=== PATIENT | male | born 1975 | race Caucasian/White ===

== ENCOUNTER 2020-11-24 18:53 | Inpatient (IN) ==
[2020-11-24] MEDS ORDERED: Naloxone 0.4 MG/ML INJ IVP PRN (22:41)
[2020-11-24] MEDS ORDERED: Ondansetron ODT 4 MG TAB.RAPDIS SL PRN (22:41)
[2020-11-24 23:28] LABS: Albumin 3.9 g/dL (3.5-5.7); Albumin/Globulin Ratio 1.7 (1.1-2.2); Bilirubin,Total 0.4 mg/dL (0.3-1.0); Calcium 8.4 mg/dL (8.6-10.3); Globulin 2.3 g/dL (2.4-3.5); Potassium 5.2 mEq/L (3.5-5.1); Total Protein 6.2 g/dL (6.4-8.9)
[2020-11-24] MEDS ORDERED: 0.9 % Sodium Chloride 1,000 ML IVC ONE (23:31)
[2020-11-25 00:24] LABS: Bacteria,Urine Few per hpf (None-Few); Bilirubin,Urine Negative (Negative); Blood,Urine Trace (Negative); Clarity,Urine Clear (Clear); Color,Urine Light-Yellow (Yellow); Glucose,Urine (UA) Normal (Normal); Hyaline Casts,Urine Many per lpf (None Seen); Ketones,Urine Negative (Negative); Leukocyte Esterase,Urine Negative (Negative); Mucus,Urine Few per lpf (None-Few); Nitrite,Urine Negative (Negative); PH,Urine 5.5 pH Units (5.0-8.0); Protein,Urine 50 mg/dL (Neg-Trace); RBC,Urine 0-3 per hpf (0-3); Urobilinogen,Urine Normal (Normal); WBC,Urine 0-3 per hpf (0-3)
[2020-11-25 01:41] LABS: Amphetamine Screen,Urine Negative ng/mL (Cutoff=1000); Barbiturate Screen,Urine Negative ng/mL (Cutoff=200); Benzodiazepines Screen,Urine Negative ng/mL (Cutoff=200); Cannabinoid Screen,Urine Positive ng/mL (Cutoff = 50); Cocaine Screen,Urine Negative ng/mL (Cutoff= 300); Opiate Screen,Urine Negative ng/mL (Cutoff=300); Phencyclidine Screen,Urine Negative ng/mL (Cutoff=25)
[2020-11-25 03:51] LABS: Basophils # 0.1 K/mcL (0.0-0.2); Basophils % 0.4 %; Eosinophils # 0.4 K/mcL (0.0-0.6); Eosinophils % 3.5 %; Hematocrit 34.5 % (37.5-50.1); Hemoglobin 11.1 g/dL (12.9-16.9); Immature Granulocytes % 0.3 % (0-4); Lymphocytes # 3.1 K/mcL (0.6-4.6); Lymphocytes % 26.8 %; Mean Corpuscular HGB Conc 32.2 g/dL (31.6-35.5); Mean Corpuscular Hemoglobin 27.2 pg (28.0-33.3); Mean Corpuscular Volume 84.6 fL (83.0-100.0); Mean Platelet Volume 9.4 fL (9.4-12.4); Monocytes # 1.5 K/mcL (0.0-1.3); Monocytes % 12.8 %; Neutrophils # 6.5 K/mcL (1.6-8.9); Platelet Count 234 K/mcL (140-400); Red Blood Count 4.08 M/mcL (4.19-5.50); Red Cell Distribution Width 15.2 % (11.5-14.5); Segmented Neutrophils % 56.2 %; White Blood Count 11.6 K/mcL (4.3-11.1)
[2020-11-25 04:06] LABS: Albumin 3.7 g/dL (3.5-5.7); Albumin/Globulin Ratio 1.6 (1.1-2.2); Bilirubin,Total 0.4 mg/dL (0.3-1.0); Calcium 8.6 mg/dL (8.6-10.3); Globulin 2.3 g/dL (2.4-3.5)
[2020-11-25 04:07] LABS: Prothrombin Time 11.7 Seconds (9.4-12.1)
[2020-11-25] MEDS ORDERED: 0.9 % Sodium Chloride 1,000 ML IVC ONE (04:29)
[2020-11-25] MEDS: *HR* Heparin 5,000 UNIT/ML VIAL SQ SCH ×3 (04:54→20:21)
[2020-11-25] MEDS: Nicotine 14 MG PATCH.TD24 TD PRN (05:07)
[2020-11-25] MEDS ORDERED: Chloraseptic Spray 177 ML BOTTLE MM PRN (06:12)
[2020-11-25] MEDS: 0.9 % Sodium Chloride 1,000 ML IVC SCH ×2 (08:12→17:27)
[2020-11-25] MEDS: *HR* Buprenorphine HCl 2 MG SUBLINGUAL TABLET SL SCH (08:44)
[2020-11-25] MEDS ORDERED: Ipratropium/Albuterol Neb 3 ML IH PRN (08:49)
[2020-11-25] MEDS ORDERED: SUBOXONE SL SCH (09:00)
[2020-11-25 09:31] LABS: Protein/Creatinine Ratio,Urine 0.46 mg/mg (0.00-0.20)
[2020-11-25] MEDS: *HR* LORazepam 2 MG/ML VIAL IVP PRN ×2 (09:57→17:27)
[2020-11-25] MEDS ORDERED: 0.9 % Sodium Chloride 1,000 ML IVC SCH (17:45)
[2020-11-26] MEDS: Melatonin 3 MG TABLET PO PRN ×2 (00:23→21:15)
[2020-11-26 02:30] LABS: Basophils # 0.1 K/mcL (0.0-0.2); Basophils % 0.4 %; Eosinophils # 0.3 K/mcL (0.0-0.6); Eosinophils % 2.5 %; Hematocrit 35.3 % (37.5-50.1); Hemoglobin 11.3 g/dL (12.9-16.9); Immature Granulocytes % 0.3 % (0-4); Lymphocytes % 16.9 %; Mean Corpuscular Hemoglobin 26.9 pg (28.0-33.3); Mean Platelet Volume 9.4 fL (9.4-12.4); Monocytes # 1.1 K/mcL (0.0-1.3); Monocytes % 9.4 %; Neutrophils # 8.2 K/mcL (1.6-8.9); Platelet Count 247 K/mcL (140-400); Red Cell Distribution Width 14.7 % (11.5-14.5); Segmented Neutrophils % 70.5 %; White Blood Count 11.6 K/mcL (4.3-11.1)
[2020-11-26 02:52] LABS: Potassium 4.8 mEq/L (3.5-5.1); Uric Acid 13.2 mg/dL (2.3-7.6)
[2020-11-26 03:22] LABS: Hepatitis B Surface Antigen Nonreactive (Nonreactive)
[2020-11-26 03:50] LABS: Hepatitis B Core IgM Nonreactive (Nonreactive)
[2020-11-26 03:51] LABS: Hepatitis A Antibody IgM Nonreactive (Nonreactive); Hepatitis C Virus Antibody Nonreactive (Nonreactive)
[2020-11-26] MEDS: Nicotine 14 MG PATCH.TD24 TD PRN (05:12)
[2020-11-26] MEDS: *HR* Heparin 5,000 UNIT/ML VIAL SQ SCH ×3 (05:12→21:15)
[2020-11-26] MEDS: *HR* Buprenorphine HCl 2 MG SUBLINGUAL TABLET SL SCH (07:18)
[2020-11-26] MEDS: *HR* LORazepam 2 MG/ML VIAL IVP PRN (08:40)
[2020-11-26] MEDS: Budesonide/Formoterol 160/4.5 1 PUFF INH IH SCH (20:18)
[2020-11-27 02:02] LABS: Basophils # 0.1 K/mcL (0.0-0.2); Basophils % 0.6 %; Eosinophils # 0.3 K/mcL (0.0-0.6); Eosinophils % 4.4 %; Hematocrit 35.6 % (37.5-50.1); Hemoglobin 11.5 g/dL (12.9-16.9); Immature Granulocytes % 0.3 % (0-4); Lymphocytes # 2.5 K/mcL (0.6-4.6); Lymphocytes % 32.6 %; Mean Corpuscular HGB Conc 32.3 g/dL (31.6-35.5); Mean Corpuscular Hemoglobin 26.7 pg (28.0-33.3); Mean Corpuscular Volume 82.8 fL (83.0-100.0); Mean Platelet Volume 9.1 fL (9.4-12.4); Monocytes # 0.8 K/mcL (0.0-1.3); Monocytes % 10.3 %; Platelet Count 228 K/mcL (140-400); Red Cell Distribution Width 14.3 % (11.5-14.5); Segmented Neutrophils % 51.8 %; White Blood Count 7.7 K/mcL (4.3-11.1)
[2020-11-27 02:24] LABS: Calcium 9.4 mg/dL (8.6-10.3); Potassium 4.7 mEq/L (3.5-5.1)
[2020-11-27] MEDS: *HR* Heparin 5,000 UNIT/ML VIAL SQ SCH (06:06)
[2020-11-27 07:13] VITALS: BP 122/63
[2020-11-27] MEDS: *HR* Buprenorphine HCl 2 MG SUBLINGUAL TABLET SL SCH (08:08)
[2020-11-27] MEDS: Budesonide/Formoterol 160/4.5 1 PUFF INH IH SCH (08:18)
== END 2020-11-27 10:45 | disposition home or self-care (01) | DRG 247 ==
LOC: 2NNU → SUATTDRO 11-25 17:40 → 2NNU 11-26 15:30
PROVIDERS: ADMIT Internal Medicine; ATTEND Internal Medicine

== ENCOUNTER 2021-03-26 18:21 | Observation (INO) ==
[2021-03-26] MEDS ORDERED: Nitroglycerin 0.4 MG TAB.SUBL SL PRN (19:01)
[2021-03-26] MEDS ORDERED: Ketorolac 15 MG/ML VIAL IVP ONE (19:02)
[2021-03-26 19:59] LABS: Basophils # 0.1 K/mcL (0.0-0.2); Basophils % 0.4 %; Eosinophils # 0.5 K/mcL (0.0-0.6); Eosinophils % 2.8 %; Hemoglobin 8.3 g/dL (12.9-16.9); Immature Granulocytes % 0.6 % (0-4); Lymphocytes # 2.4 K/mcL (0.6-4.6); Lymphocytes % 14.6 %; Mean Corpuscular HGB Conc 33.2 g/dL (31.6-35.5); Mean Corpuscular Hemoglobin 29.1 pg (28.0-33.3); Mean Corpuscular Volume 87.7 fL (83.0-100.0); Mean Platelet Volume 9.8 fL (9.4-12.4); Monocytes # 1.8 K/mcL (0.0-1.3); Monocytes % 11.1 %; Neutrophils # 11.5 K/mcL (1.6-8.9); Platelet Count 201 K/mcL (140-400); Red Blood Count 2.85 M/mcL (4.19-5.50); Red Cell Distribution Width 14.1 % (11.5-14.5); Segmented Neutrophils % 70.5 %; White Blood Count 16.3 K/mcL (4.3-11.1)
[2021-03-26 20:22] LABS: Alanine Aminotransferase 10 Units/L (7-52); Albumin 3.7 g/dL (3.5-5.7); Albumin/Globulin Ratio 1.8 (1.1-2.2); Alkaline Phosphatase 88 Units/L (34-104); Aspartate Amino Transferase 14 Units/L (13-39); BUN/Creatinine Ratio 13 (6-26); Bilirubin,Direct 0.1 mg/dL (0.0-0.2); Bilirubin,Indirect 0.1 mg/dL (0.0-1.0); Bilirubin,Total 0.2 mg/dL (0.3-1.0); Blood Urea Nitrogen 17 mg/dL (6-20); Carbon Dioxide 30 mEq/L (23-29); Chloride 104 mEq/L (98-107); Globulin 2.1 g/dL (2.4-3.5); Glucose 110 mg/dL (70-105); Osmolality,Calculated 290 (280-300); Sodium 139 mEq/L (136-145); Total Protein 5.8 g/dL (6.4-8.9); Troponin I < 0.03 ng/mL (< 0.04); eGFR For African Americans > 60 (> 60); eGFR For Non-African Americans 59 (> 60)
[2021-03-26] MEDS ORDERED: cefTRIAXone 1,000 MG in Water for inj. (sterile) 10 ML IVP ONE (20:31)
[2021-03-26] MEDS ORDERED: Azithromycin 250 MG TABLET PO ONE (20:31)
[2021-03-26] MEDS ORDERED: Isovue-370 500 ML BOTTLE IVP ONE (20:40)
[2021-03-26] MEDS ORDERED: Naloxone 0.4 MG/ML INJ IVP PRN (22:30)
[2021-03-26] MEDS ORDERED: Melatonin 3 MG TABLET PO PRN (22:30)
[2021-03-26] MEDS ORDERED: *HR* HYDROcodone/Acet 5/325 mg TABLET PO PRN (22:30)
[2021-03-26] MEDS ORDERED: Ondansetron 4 MG/2 ML VIAL IVP PRN (22:30)
[2021-03-26] MEDS ORDERED: Ipratropium/Albuterol Neb 3 ML IH PRN (22:57)
[2021-03-27] MEDS: Ipratropium/Albuterol Neb 3 ML IH SCH ×4 (00:04→11:10)
[2021-03-27 01:02] LABS: Basophils # 0.1 K/mcL (0.0-0.2); Basophils % 0.4 %; Eosinophils # 0.5 K/mcL (0.0-0.6); Eosinophils % 3.4 %; Hematocrit 25.3 % (37.5-50.1); Hemoglobin 8.1 g/dL (12.9-16.9); Immature Granulocytes % 0.8 % (0-4); Lymphocytes # 2.6 K/mcL (0.6-4.6); Lymphocytes % 19.3 %; Mean Corpuscular Hemoglobin 28.8 pg (28.0-33.3); Mean Platelet Volume 9.6 fL (9.4-12.4); Monocytes # 1.4 K/mcL (0.0-1.3); Monocytes % 9.9 %; Platelet Count 191 K/mcL (140-400); Red Blood Count 2.81 M/mcL (4.19-5.50); Red Cell Distribution Width 14.4 % (11.5-14.5); Segmented Neutrophils % 66.2 %; White Blood Count 13.6 K/mcL (4.3-11.1)
[2021-03-27 01:09] LABS: Prothrombin Time 11.8 Seconds (9.4-12.1)
[2021-03-27] MEDS: *HR* Buprenorphine HCl 8 MG TAB.SUBL SL SCH ×2 (01:18→21:23)
[2021-03-27 01:20] LABS: BUN/Creatinine Ratio 12 (6-26); Blood Urea Nitrogen 17 mg/dL (6-20); Calcium 8.9 mg/dL (8.6-10.3); Carbon Dioxide 28 mEq/L (23-29); Chloride 104 mEq/L (98-107); Chol/HDL Ratio 3.5 (0-4.9); Cholesterol 102 mg/dL (< 200); Glucose 142 mg/dL (70-105); HDL Cholesterol 29 mg/dL (40-59); LDL Cholesterol,Calculated 32 mg/dL (< 100); Magnesium 1.9 mg/dL (1.6-2.6); Osmolality,Calculated 290 (280-300); Potassium 4.1 mEq/L (3.5-5.1); Sodium 138 mEq/L (136-145); Triglycerides 204 mg/dL (< 150); eGFR For African Americans > 60 (> 60); eGFR For Non-African Americans 53 (> 60)
[2021-03-27 01:24] LABS: Iron 24 mcg/dL (65-175)
[2021-03-27 01:40] LABS: Ferritin 46 ng/mL (20-250)
[2021-03-27 01:46] LABS: Folate 7.9 ng/mL (3.0-16.0)
[2021-03-27 02:22] LABS: % Iron Saturation 8 % (20-55); Transferrin 228 mg/dL (203-362)
[2021-03-27] MEDS: *HR* Enoxaparin 40 MG/0.4 ML SYRINGE SQ SCH (05:47)
[2021-03-27] MEDS: Budesonide/Formoterol 160/4.5 1 PUFF INH IH SCH ×2 (07:34→19:49)
[2021-03-27] MEDS: cefTRIAXone 1,000 MG in Water for inj. (sterile) 10 ML IVP SCH (10:31)
[2021-03-27] MEDS: predniSONE 20 MG TABLET PO SCH (10:31)
[2021-03-27] MEDS ORDERED: Fluticasone Propionate Nasal 50 MCG/SPRAY BOTTLE NS PRN (12:54)
[2021-03-27] MEDS: cloNIDine HCL 0.1 MG TABLET PO SCH ×2 (14:31→21:23)
[2021-03-27] MEDS: Gabapentin 300 MG CAPSULE PO SCH ×2 (14:31→21:24)
[2021-03-27] MEDS: hydrOXYzine pamoate 25 MG CAPSULE PO SCH ×2 (14:34→21:23)
[2021-03-27] MEDS ORDERED: Azithromycin 500 MG in 0.9 % Sodium Chloride 250 ML IVPB SCH (18:00)
[2021-03-27] MEDS: Nicotine 21 MG PATCH.TD24 TD SCH (18:28)
[2021-03-27] MEDS: Acetaminophen 325 MG TABLET PO PRN (21:35)
[2021-03-28 03:25] LABS: Basophils % 0.2 %; Eosinophils # 0.1 K/mcL (0.0-0.6); Eosinophils % 0.2 %; Hemoglobin 8.3 g/dL (12.9-16.9); Immature Granulocytes % 0.7 % (0-4); Lymphocytes # 1.9 K/mcL (0.6-4.6); Lymphocytes % 9.3 %; Mean Corpuscular HGB Conc 33.2 g/dL (31.6-35.5); Mean Corpuscular Hemoglobin 29.2 pg (28.0-33.3); Mean Platelet Volume 9.6 fL (9.4-12.4); Monocytes # 2.3 K/mcL (0.0-1.3); Monocytes % 11.6 %; Neutrophils # 15.6 K/mcL (1.6-8.9); Platelet Count 206 K/mcL (140-400); Red Blood Count 2.84 M/mcL (4.19-5.50); Red Cell Distribution Width 14.1 % (11.5-14.5); White Blood Count 20.1 K/mcL (4.3-11.1)
[2021-03-28 03:38] LABS: BUN/Creatinine Ratio 14 (6-26); Blood Urea Nitrogen 17 mg/dL (6-20); Calcium 9.5 mg/dL (8.6-10.3); Carbon Dioxide 31 mEq/L (23-29); Chloride 102 mEq/L (98-107); Glucose 100 mg/dL (70-105); Magnesium 2.2 mg/dL (1.6-2.6); Osmolality,Calculated 288 (280-300); Phosphorous 2.9 mg/dL (2.7-4.5); Potassium 4.9 mEq/L (3.5-5.1); Sodium 138 mEq/L (136-145); eGFR For African Americans > 60 (> 60); eGFR For Non-African Americans > 60 (> 60)
[2021-03-28 04:18] VITALS: PULSE 80
[2021-03-28] MEDS: *HR* Enoxaparin 40 MG/0.4 ML SYRINGE SQ SCH (05:46)
[2021-03-28 06:55] VITALS: BP 146/60; TEMP 98.1
[2021-03-28] MEDS: Budesonide/Formoterol 160/4.5 1 PUFF INH IH SCH (07:36)
[2021-03-28] MEDS: cefTRIAXone 1,000 MG in Water for inj. (sterile) 10 ML IVP SCH (08:15)
[2021-03-28] MEDS: Gabapentin 300 MG CAPSULE PO SCH (08:16)
[2021-03-28] MEDS: cloNIDine HCL 0.1 MG TABLET PO SCH (08:17)
[2021-03-28] MEDS: hydrOXYzine pamoate 25 MG CAPSULE PO SCH (08:17)
[2021-03-28] MEDS: Nicotine 21 MG PATCH.TD24 TD SCH (08:17)
[2021-03-28] MEDS: predniSONE 20 MG TABLET PO SCH (08:17)
[2021-03-28] MEDS ORDERED: BuPROPion SR (12 HR) 150 MG TABLET PO SCH (09:00)
[2021-03-28] MEDS ORDERED: Fenofibrate 54 MG TABLET PO SCH (09:00)
[2021-03-28] MEDS ORDERED: Lisinopril-HCTZ 20-12.5mg TABLET PO SCH (09:00)
[2021-03-28] MEDS: Acetaminophen 325 MG TABLET PO PRN (09:49)
[2021-03-28 13:05] VITALS: O2SAT 97
== END 2021-03-28 12:15 | disposition home or self-care (01) ==
LOC: EMEROOARM 18:21 → 3ANU 18:21 → SUATTDRO 21:39 → 3ANU 22:49
PROVIDERS: ADMIT Internal Medicine; ATTEND Internal Medicine

== ENCOUNTER 2022-01-04 02:55 | Observation (INO) ==
[2022-01-04] MEDS ORDERED: Naloxone 0.4 MG/ML INJ IVP PRN (05:00)
[2022-01-04] MEDS ORDERED: Ondansetron 4 MG/2 ML VIAL IVP PRN (05:00)
[2022-01-04] MEDS ORDERED: Melatonin 3 MG TABLET PO PRN (05:00)
[2022-01-04] MEDS: 0.9 % Sodium Chloride 1,000 ML IVC SCH ×3 (05:21→21:00)
[2022-01-04 05:32] LABS: Basophils # 0.1 K/mcL (0.0-0.2); Basophils % 0.3 %; Eosinophils # 0.5 K/mcL (0.0-0.6); Eosinophils % 3.1 %; Hematocrit 33.3 % (37.5-50.1); Hemoglobin 11.1 g/dL (12.9-16.9); Immature Granulocytes % 1.3 % (0-4); Lymphocytes # 3.2 K/mcL (0.6-4.6); Lymphocytes % 19.1 %; Mean Corpuscular HGB Conc 33.3 g/dL (31.6-35.5); Mean Corpuscular Hemoglobin 28.4 pg (28.0-33.3); Mean Corpuscular Volume 85.2 fL (83.0-100.0); Mean Platelet Volume 8.4 fL (9.4-12.4); Monocytes # 1.2 K/mcL (0.0-1.3); Monocytes % 7.2 %; Neutrophils # 11.4 K/mcL (1.6-8.9); Platelet Count 309 K/mcL (140-400); Red Blood Count 3.91 M/mcL (4.19-5.50); Red Cell Distribution Width 15.5 % (11.5-14.5); White Blood Count 16.6 K/mcL (4.3-11.1)
[2022-01-04 05:43] LABS: Prothrombin Time 11.2 Seconds (9.4-12.1)
[2022-01-04 05:55] LABS: Potassium 4.5 mEq/L (3.5-5.1)
[2022-01-04 05:56] LABS: Albumin 3.5 g/dL (3.5-5.7); Albumin/Globulin Ratio 1.8 (1.1-2.2); Bilirubin,Total 0.3 mg/dL (0.3-1.0); Calcium 8.3 mg/dL (8.6-10.3); Globulin 1.9 g/dL (2.4-3.5); Magnesium 1.9 mg/dL (1.6-2.6); Phosphorous 3.1 mg/dL (2.7-4.5); Total Protein 5.4 g/dL (6.4-8.9)
[2022-01-04] MEDS ORDERED: Acetaminophen 325 MG TABLET PO PRN (20:54)
[2022-01-05 03:16] LABS: Basophils # 0.1 K/mcL (0.0-0.2); Basophils % 0.5 %; Eosinophils # 0.5 K/mcL (0.0-0.6); Eosinophils % 4.2 %; Hematocrit 33.3 % (37.5-50.1); Hemoglobin 10.9 g/dL (12.9-16.9); Lymphocytes % 25.7 %; Mean Corpuscular HGB Conc 32.7 g/dL (31.6-35.5); Mean Corpuscular Hemoglobin 27.9 pg (28.0-33.3); Mean Corpuscular Volume 85.4 fL (83.0-100.0); Mean Platelet Volume 8.6 fL (9.4-12.4); Monocytes # 0.9 K/mcL (0.0-1.3); Monocytes % 7.8 %; Neutrophils # 7.1 K/mcL (1.6-8.9); Platelet Count 308 K/mcL (140-400); Red Cell Distribution Width 15.4 % (11.5-14.5); Segmented Neutrophils % 60.8 %; White Blood Count 11.7 K/mcL (4.3-11.1)
[2022-01-05 03:31] LABS: Calcium 8.9 mg/dL (8.6-10.3)
[2022-01-05] MEDS: 0.9 % Sodium Chloride 1,000 ML IVC SCH (04:50)
[2022-01-05 07:28] VITALS: BP 188/60; PULSE 69; TEMP 97; O2SAT 97
[2022-01-05] MEDS ORDERED: *HR* HYDROcodone/Acet 5/325 mg TABLET PO PRN (07:30)
[2022-01-05] MEDS ORDERED: Metoprolol XL (24 HR) Succ 25 MG TAB.ER.24H PO SCH (09:00)
[2022-01-05] MEDS ORDERED: lisinopriL 20 MG TABLET PO SCH (09:00)
[2022-01-05] MEDS ORDERED: Fenofibrate 54 MG TABLET PO SCH (09:00)
[2022-01-05] MEDS ORDERED: hydrOXYzine pamoate 25 MG CAPSULE PO SCH (09:00)
[2022-01-05] MEDS ORDERED: BuPROPion SR (12 HR) 100 MG TABLET PO SCH (09:00)
[2022-01-05] MEDS ORDERED: Fluticasone Propionate Nasal 50 MCG/SPRAY BOTTLE NS SCH (09:00)
[2022-01-05] MEDS ORDERED: DICLOFENAC TP SCH (09:00)
[2022-01-05] MEDS ORDERED: Budesonide/Formoterol 160/4.5 1 PUFF INH IH SCH (10:00)
== END 2022-01-05 10:55 | disposition home or self-care (01) ==
LOC: 2NENU → SUATTDRO 04:38
PROVIDERS: ADMIT Internal Medicine; ATTEND Internal Medicine